=== PATIENT | female | born 1950 | race Caucasian/White ===

== ENCOUNTER 2016-11-10 08:46 | Emergency (ER) | payer OTHER ==
[2016-11-10 09:09] VITALS: RESP 16; TEMP 98.4
--- NOTE | 2016-11-10 09:35 | DX ---
Left Elbow, Three Views History: Pain post trauma. Fall. Findings: There is a subtle buckle of the base of the lateral radial head consistent with a nondispla terri transverse radial head fracture. There is both an anterior and posterior fat pad sign. Overall m ineralization is normal. Impression: Nondisplaced radial head fracture.
[2016-11-10] MEDS ORDERED: LETS SOLN TOPICAL 1 EA SYR TP ONE (09:37)
[2016-11-10] MEDS ORDERED: IBUPROFEN 200 MG TAB PO ONE (09:41)
--- NOTE | 2016-11-10 09:41 | UCPHY ---
H & P Time Seen by Provider: 11/10/16 09:29 Patient Type: New HPI/ROS: This patient was walking her black lab yesterday afternoon when the dog saw a gofer and lunged for the creature. This pulled the patient over and she struck her right forehead verses the ground and injured her right elbow. She was able to walk back home-approximately a mi or so with her thereafter. She had a mild headache yesterday which has since resolved. She now complains of left elbow pain from the fall that worsens with pronation or supination of her forearm. The pain is moderate baseline and increases with movement. She also had a small laceration to her forehead that she cleaned at home and stop bleeding after direct pressure. ROS: Constitutional-no complaints HEENT-no facial pain or other injuries Pulmonary-no rib pain or difficulty breathing Cardiac: No complaints Musculoskeletal no neck pain GI-no nausea or vomiting Neuro: No focal numbness tingling weakness. Smoking Status: Never smoked Physical Exam: Physical Exam Vital signs are normal. General: No acute distress HEENT: The patient has a small laceration of the left forehead that is X shaped and well-approximated with no active bleeding. There is no underlying bony step-off or hematoma. The length of this wound is 2 x 1.5 cm there is no foreign bodies under examination oropharynx is atraumatic and normal ears: Tympanic membranes clear with no hemotympanum Eyes: Pupils equal and react to light. Extraocular motions are intact. Neck: Nontender with full range of motion intact Lungs: No respiratory distress. No chest wall tenderness Cardiac: Brisk capillary refill is intact throughout. Pulses are 2+ and symmetric in the affected extremity. Musculoskeletal: Atraumatic and normal except for left elbow Left elbow: She has tenderness the left radial head and difficulty with pronation supination due to increased pain with those maneuvers. Mild pain with flexion extension. No significant swelling Skin: No rash or pallor. Neuro: Alert and oriented x3 with no sensorimotor deficits. Cranial nerves 2 through 12 are intact Initial differential diagnosis: Minor head injury without loss of consciousness versus mild concussion, laceration, elbow sprain versus radial head fracture Constitutional: Initial Vital Signs Temperature (C) 36.9 C 11/10/16 09:05 Heart Rate 73 11/10/16 09:05 Respiratory Rate 16 11/10/16 09:05 Blood Pressure 164/59 H 11/10/16 09:05 O2 Sat (%) 97 11/10/16 09:05 O2 Delivery Mode Room Air Allergies/Adverse Reactions: amoxicillin Allergy (Intermediate, Verified 11/10/16 09:11) Hives Penicillins Allergy (Intermediate, Verified 11/10/16 09:11) Hives Home Medications: Medication Instructions Recorded Flonase Nasal Addison 11/10/16 [id number] 11/10/16 MDM/Departure - MDM Diagnostics: Elbow x-ray: Subtle radial head fracture-nondisplaced by my interpretation elbow effusion is also present. Procedures: Skin adhesive wound repair After verbal consent let solution was applied wound scrub by our tech with baby shampoo and saline under sterile conditions using Dermabond I closed the wound with good tissue approximation hemostasis cosmesis. Patient tolerated this well with no complications. Medications Given: Discontinued Medications Ibuprofen (Motrin) 600 mg PO EDNOW ONE Stop: 11/10/16 09:42 Last Admin: 11/10/16 09:56 Dose: 600 mg Octyl Cyanoacrylate (Dermabond) 1 each TP EDNOW ONE Stop: 11/10/16 10:44 Last Admin: 11/10/16 10:48 Dose: 1 each Tetracaine/Epinephrine/Lidocaine (Lets Soln Topical) 1 ea TP EDNOW ONE Stop: 11/10/16 09:38 Last Admin: 11/10/16 09:56 Dose: 1 ea ED Course/Re-evaluation: Patient is placed in a sling by our tech. I counseled the patient regarding her elbow injury. I do not think the patient actually had concussions she denies being dazed or having any kind of loss of conscious when she struck her head. She certainly has no concerning findings here currently in terms of her neurological exam or HEENT exam. She will follow up with Orthopedics regarding her elbow injury - Depart Disposition: Home, Routine, Self-Care Clinical Impression: Radial head fracture, closed Qualifiers: Encounter type: initial encounter Fracture alignment: nondisplaced Laterality: left Qualifier Code: (S52.125A) Nondisplaced fracture of head of left radius, initial encounter for closed fracture Condition: Good Instructions: Elbow Fracture in Adults (ED), Head Injury (ED), Skin Adhesive Care (ED) Additional Instructions: Dx: 1. Minor head injury without LOC 2. Facial laceration 3. Radial head fracture Plan: Ibuprofen-600 mg per 6 hours Tylenol in addition if needed for pain Sling when your up and about He may get the wound wet, but did not scrub it. Do not apply ointment. Typically the glue falls off in 5-7 days and by then the underlying wound should be healing. Ice 20 minutes at a time 3 times a day for the next few days Follow up with Dr. Sharma-orthopedic physician regarding your elbow sometime in the next 2 to the 7 days Referrals: OUT OF STATE,. [Primary Care Provider] - As per Instructions Cali Sharma MD [Medical Doctor] - As per Instructions - PQRS PQRS Measurement: NA
[2016-11-10] MEDS ORDERED: SKIN ADHESIVE (DERMABOND) 1 EACH TP ONE (10:43)
[2016-11-10 10:53] VITALS: BP 146/78; PULSE 70; O2SAT 96
== END 2016-11-10 10:56 | disposition home or self-care (01) ==
LOC: CED 08:46
DX: S52.125A Nondisplaced fracture of head of left radius, initial encounter for closed fracture (principal); S01.81XA Laceration without foreign body of other part of head, initial encounter; W18.30XA Fall on same level, unspecified, initial encounter; Y93.K1 Activity, walking an animal
CPT/HCPCS: 73080; 99201; L3670; 12011-PO; 99203-PO; G0463-PO